=== PATIENT | female | born 1940 | race African-American/Black ===

== ENCOUNTER 2017-05-19 07:01 | Emergency (ER) | payer MEDICARE, BC ==
[~2017-05-19] VITALS: Ht 167.6 cm; Wt 99.0 kg
[~2017-05-19 07:01] MED LIST: Aspirin Ec PO; COZA100T PO; CREON24 PO; DOXE10CA PO; GLIM4TAB PO; KOMB2.5T PO; L-ME1CAP2 PO; LANTUS2P SQ; LIPI20TA PO; LYRI75CA PO; MECL-62 PO; SYNT112T PO
[2017-05-19 07:12] VITALS: BP 157/85; PULSE 102; RESP 18; TEMP 97.7; O2SAT 98
[2017-05-19] MEDS ORDERED: ALPR.25 PO (07:29)
[2017-05-19] MEDS ORDERED: AMLO2.5T PO (07:29)
[2017-05-19 07:36] LABS: BLOOD, URINE TRACE (NEG); KETONE, URINE NEG (NEG); NITRITE,URINE NEG (NEG); PH, URINE 5.5 (5.0-8.5)
[2017-05-19 07:42] LABS: GLUCOSE,URINE 1000 OR GREATER mg/dL (NEG); METHOD OF COLLECTION CLEAN CATCH; URINE COLOR STRAW (YELLW/STRAW)
[2017-05-19 07:44] LABS: COMMENT (UR) CULT NOT INDICATED; CULTURE IF INDICATED CULT NOT INDICATED; RBC, URINE 0-3 /hpf (0-3)
[2017-05-19] MEDS ORDERED: GYNE3CRE VAGINAL (08:02)
--- NOTE | 2017-05-19 08:02 | PD ---
HPI Chief Complaint: Publicity Agent Problem/Complaint Time Seen by Provider: 07:06 Travel History International Travel<30 days: No Contact w/Intl Traveler<30days: No Traveled to known affect area: No History of Present Illness HPI 77-year-old female arrives with 3-4 days of vaginal burning and tenderness. She reports urination is painful. She denies any possibility of sexually transmitted disease. She applied Desitin cream this morning which was marginally helpful. No nausea vomiting or fever. PFSH Past Medical History Hx Anticoagulant Therapy: Yes Anxiety: Yes Cancer: No Cardiovascular Problems: Yes High Cholesterol: Yes Cerebrovascular Accident: Yes Diabetes: Yes Patient Takes Glucophage: No Diminished Hearing: No Glaucoma: Yes Genitourinary: No Headaches: Yes Hypertension: Yes Immune Disorder: No Musculoskeletal: No Neurologic: Yes Psychiatric: Yes Reproductive: No Respiratory: No Pancreatitis: Yes Sickle Cell Disease: No Thyroid Disease: Yes (HYPOTHYROID ) Influenza Vaccination: Yes ?: Not Menopausal: Yes Past Surgical History Abdominal Surgery: Yes (CHOLESCYSTECTOMY ) Cholecystectomy: Yes Eye Surgery: Yes (LENS REPLACEMENT, CATARACTS) Gynecologic Surgery: Yes (HYSTERECTOMY ) Hysterectomy: Yes Oral Surgery: Yes (WISDOM TEETH ) Other Surgery: Yes (LEFT LOWER LEG SKIN GRAFT AT AGE 9 R/T INJURY) Social History Alcohol Use: No Tobacco Use: No (one cig a day) Substance Use: No Allergies-Medications (Allergen,Severity, Reaction): Coded Allergies: No Known Allergies (Unverified , 05/19/17) Reported Meds & Prescriptions Reported Meds & Active Scripts Active Gyne-Lotrimin 3 Vaginal (Clotrimazole Vaginal) 2% Cream 1 Appl VAGINAL DAILY 7 Days Reported Amlodipine (Amlodipine Besylate) 2.5 Mg Tab 2.5 Mg PO DAILY Xanax (Alprazolam) 0.25 Mg Tab 0.25 Mg PO HS PRN Lyrica (Pregabalin) 75 Mg Cap 75 Mg PO HS Lantus Inj (Insulin Glargine) 1,000 Unit/10 Ml Vial 12 Units SQ BID Meclizine (Meclizine HCl) 25 Mg Tab 25 Mg PO BID PRN Glimepiride 4 Mg Tab 4 Mg PO BIDAC Synthroid (Levothyroxine Sodium) 112 Mcg Tab 112 Mcg PO DAILY Kombiglyze Xr (Saxagliptin-Metformin ER) 2.5-1,000 Mg Tab 1 Tab PO BIDPC Creon (Amylase/Lipase/Protease) 24,000-76,000-120,000 Units Cap 1 Cap PO TIDPC Lipitor (Atorvastatin Calcium) 20 Mg Tab 20 Mg PO HS Review of Systems General / Constitutional: No: Fever Genitourinary: Positive: Dysuria Skin: Positive Rash, Positive Dryness Physical Exam Narrative GENERAL: 71-year-old female well-nourished well-developed distress GENITOURINARY: The external vulva are erythematous and swollen minimally excoriated. Vaginal mucosa normal. No crepitus. SKIN: Warm and dry. HEAD: Normocephalic. EYES: No scleral icterus. No injection or drainage. BACK: Nontender without obvious deformity. No CVA tenderness. Data Data Last Documented VS Vital Signs Date Time Temp Pulse Resp B/P Pulse Ox O2 Delivery O2 Flow Rate FiO2 05/19/17 07:12 97.7 102 18 157/85 98 Vital signs reviewed Orders Wet Prep Profile (05/19/17 07:21) Urinalysis - C+S If Indicated (05/19/17 07:21) Gc And Chlamydia Pcr (05/19/17 07:21) Fluconazole (Diflucan) (05/19/17 08:15) Labs Laboratory Tests Test 05/19/17 07:25 Urine Collection Type CLEAN CATCH Urine Color STRAW Urine Turbidity SLIGHT Urine pH 5.5 Urine Specific [place] 1.026 Urine Protein TRACE mg/dL Urine Glucose (UA) 1000 OR GREATER mg/dL Urine Ketones NEG mg/dL Urine Occult Blood TRACE Urine Nitrite NEG Urine Bilirubin NEG Urine Leukocyte Esterase NEG Urine RBC 0-3 /hpf Urine Squamous Epithelial 6-8 /hpf Cells Urine Amorphous Sediment LARGE Microscopic Urinalysis Comment CULT NOT INDICATED Urine Collection Time 0725 Clue Cells (Wet Prep) NONE SEEN Vaginal Trichomonas (Wet Prep) NONE SEEN Vaginal Yeast (Wet Prep) NONE SEEN MDM Medical Decision Making Medical Screen Exam Complete: Yes Emergency Medical Condition: Yes Medical Record Reviewed: Yes Differential Diagnosis Candidiasis, vulvovaginal candidiasis, UTI, dermatitis, necrotizing disease Narrative Course UA: No UTI Wet prep: Wood-negative The vulva appear edematous and erythematous c/w dermatitis. Possible Zenaida infestation. Diagnosis Primary Impression: Vulvovaginal pain Referrals: Vein Pumper 3 days Additional Instructions: You have a choice when it comes to health care, and we are glad that you chose [facility]. Hopefully, we have met your expectations on today's visit. You are welcome to return to [facility] at any time, as we are committed to meeting the health care needs of our community. Med/Other Pt SpecificInfo: Prescription(s) given Scripts Clotrimazole Vaginal (Gyne-Lotrimin 3 Vaginal)2% Cream1 Appl VAGINAL DAILY 7 Days Ref 0 Prov:Nahid Waldrop MD 05/19/17 Disposition: 01 DISCHARGE HOME Condition: Stable Nahid Waldrop MD May 19, 2017 08:02
[2017-05-19] MEDS ORDERED: FLUCONAZOLE 100 MG TAB PO ONE (08:15)
[2017-05-19 17:41] LABS: CHLAMYDIA PCR NOT DETECTED (NOT DETECT); NEISSERIA PCR NOT DETECTED (NOT DETECT)
== END 2017-05-19 08:26 | disposition home or self-care (01) ==
LOC: PHED 07:01
DX: R10.2 Pelvic and perineal pain (principal); R30.0 Dysuria; E11.9 Type 2 diabetes mellitus without complications; E03.9 Hypothyroidism, unspecified; I10 Essential (primary) hypertension; Z79.4 Long term (current) use of insulin; Z79.899 Other long term (current) drug therapy
CPT/HCPCS: 81001; 87210; 87491; 87591; 99284

== ENCOUNTER 2017-08-19 05:33 | Emergency (ER) | payer MEDICARE, BC ==
[~2017-08-19] VITALS: Ht 167.6 cm; Wt 98.2 kg
[~2017-08-19 05:33] MED LIST changes: +ALPR.25 PO; +AMLO2.5T PO; -Aspirin Ec PO; -COZA100T PO; -DOXE10CA PO; +GYNE3CRE VAGINAL; -L-ME1CAP2 PO
[2017-08-19 05:41] VITALS: BP 119/74; PULSE 94; RESP 18; TEMP 97.6; O2SAT 95
--- NOTE | 2017-08-19 06:05 | PD ---
HPI Chief Complaint: GI Complaint Time Seen by Provider: 05:50 Travel History International Travel<30 days: No Contact w/Intl Traveler<30days: No Traveled to known affect area: No History of Present Illness HPI 77-year-old female here for evaluation of constipation. The patient was diagnosed with upper respiratory infection and cough last week by her primary care physician and started on azithromycin as well as hydrocodone cough suppressant which she filled on 08/12/17. She has not had a bowel movement for the last 4-5 days. She tried taking magnesium citrate yesterday, however is not had a bowel movement. History of hysterectomy and cholecystectomy. She denies vomiting. No abdominal pain. She reports that her cough is improving. PFSH Past Medical History Hx Anticoagulant Therapy: Yes Anxiety: Yes Cancer: No Cardiovascular Problems: Yes High Cholesterol: Yes Cerebrovascular Accident: Yes Diabetes: Yes Diminished Hearing: No Glaucoma: Yes Genitourinary: No Headaches: Yes Hypertension: Yes Immune Disorder: No Musculoskeletal: No Neurologic: Yes Psychiatric: Yes Reproductive: No Respiratory: No Pancreatitis: Yes Sickle Cell Disease: No Thyroid Disease: Yes (HYPOTHYROID ) Menopausal: Yes Past Surgical History Abdominal Surgery: Yes (CHOLESCYSTECTOMY ) Cholecystectomy: Yes Eye Surgery: Yes (LENS REPLACEMENT, CATARACTS) Gynecologic Surgery: Yes (HYSTERECTOMY ) Hysterectomy: Yes Oral Surgery: Yes (WISDOM TEETH ) Other Surgery: Yes (LEFT LOWER LEG SKIN GRAFT AT AGE 9 R/T INJURY) Social History Alcohol Use: No Tobacco Use: No (one cig a day) Substance Use: No Allergies-Medications (Allergen,Severity, Reaction): Coded Allergies: No Known Allergies (Unverified , 08/19/17) Reported Meds & Prescriptions Reported Meds & Active Scripts Active Lactulose Liq (Lactulose) 10 Gm/15 Ml Soln 30 Ml PO Q6H PRN 5 Days Reported Amlodipine (Amlodipine Besylate) 2.5 Mg Tab 2.5 Mg PO DAILY Xanax (Alprazolam) 0.25 Mg Tab 0.25 Mg PO HS PRN Lyrica (Pregabalin) 75 Mg Cap 75 Mg PO HS Lantus Inj (Insulin Glargine) 1,000 Unit/10 Ml Vial 12 Units SQ BID Meclizine (Meclizine HCl) 25 Mg Tab 25 Mg PO BID PRN Glimepiride 4 Mg Tab 4 Mg PO BIDAC Synthroid (Levothyroxine Sodium) 112 Mcg Tab 112 Mcg PO DAILY Kombiglyze Xr (Saxagliptin-Metformin ER) 2.5-1,000 Mg Tab 1 Tab PO BIDPC Creon (Amylase/Lipase/Protease) 24,000-76,000-120,000 Units Cap 1 Cap PO TIDPC Review of Systems Except as stated in HPI: all other systems reviewed are Neg Physical Exam Narrative GENERAL: Well-developed, well-nourished, comfortable, no apparent distress. SKIN: Focused skin assessment warm/dry. HEAD: Atraumatic. Normocephalic. EYES: Pupils equal and round. No scleral icterus. No injection or drainage. ENT: Mucous membranes pink and moist. CARDIOVASCULAR: Regular rate and rhythm. RESPIRATORY: No accessory muscle use. Clear to auscultation. Breath sounds equal bilaterally. GASTROINTESTINAL: Abdomen soft, non-tender, nondistended. Normal bowel sounds. No hernias. RECTUM: Exam performed in the presence of a female nurse. Few skin tags, no masses or hemorrhoids, moderate amount of stool in the rectal vault which was disimpacted. MUSCULOSKELETAL: No obvious deformities. No clubbing. No cyanosis. No edema. NEUROLOGICAL: Awake and alert. No obvious cranial nerve deficits. Motor grossly within normal limits. Normal speech. PSYCHIATRIC: Appropriate mood and affect; insight and judgment normal. Data Data Last Documented VS Vital Signs Date Time Temp Pulse Resp B/P (MAP) Pulse Ox O2 Delivery O2 Flow Rate FiO2 08/19/17 06:20 08/19/17 05:41 97.6 94 18 95 Orders Orders Ed Discharge Order (08/19/17 06:19) [facility] Medical Decision Making Medical Screen Exam Complete: Yes Emergency Medical Condition: Yes Differential Diagnosis Medication-induced constipation, bowel obstruction unlikely, acute intra- abdominal process unlikely Narrative Course Vital signs show heart rate 94, blood pressure 119/74, pulse ox 95% on room air , oral temp of 97.6F. This is a 77-year-old female who is here because she has not had a bowel movement for the last 4-5 days. She is not having any abdominal pain or vomiting. On physical exam she has normal bowel sounds in her abdomen is soft and nontender. There are no hernias. Rectal exam shows no masses. There was a moderate amount of stool in rectal vault which was disimpacted by me. Stool is brown and soft. She has been on hydrocodone as a cough suppressant that was prescribed on 08/12/17. This is likely the culprit for her constipation. Clinically she is not obstructed. Plan is to discharge her home with a prescription for lactulose. Both the patient and the patient's son were informed on when to return to the emergency department. PMD follow-up this week. They verbalized understanding and agreement with plan. Diagnosis Primary Impression: Constipation Qualified Codes: K59.00 - Constipation, unspecified Referrals: Primary Care Physician 3 days Additional Instructions: Take medication as prescribed until you have a bowel movement. Drink plenty of fluids. Return to the emergency department for worsening symptoms or any other concerns as discussed. Follow-up with your primary care physician this week. Scripts Lactulose Liq (Lactulose Liq) 10 Gm/15 Ml Soln 30 ML PO Q6H Y for CONSTIPATION for 5 Days, #600 ML 0 Refills Prov: Hang Early MD 08/19/17 Disposition: 01 DISCHARGE HOME Condition: Stable Hang Early MD Aug 19, 2017 06:05
[2017-08-19] MEDS ORDERED: LACT10SO PO (06:18)
== END 2017-08-19 06:33 | disposition home or self-care (01) ==
LOC: PHED 05:33
DX: K59.00 Constipation, unspecified (principal); R05 Cough; E11.9 Type 2 diabetes mellitus without complications; Z79.4 Long term (current) use of insulin
CPT/HCPCS: 99284